=== PATIENT | male | born 1980 | race African-American/Black ===

== ENCOUNTER 2018-03-15 16:51 | Emergency (ER) | payer MEDICAID ==
[~2018-03-15] VITALS: Ht 180.3 cm; Wt 69.0 kg
[2018-03-15] MEDS ORDERED: IBUPROFEN 600MG TABLET PO NR (22:00)
[2018-03-15 22:07] LABS: CLARITY URINE CLEAR (CLEAR); COLOR URINE YELLOW (YELLOW); KETONES URINE TRACE (NEGATIVE); LEUKOCYTE ESTERASE URINE NEGATIVE (NEGATIVE); NITRITE URINE NEGATIVE (NEGATIVE); OCCULT BLOOD URINE 3+ (NEGATIVE); PROTEIN URINE 2+ (NEGATIVE); SPECIFIC GRAVITY URINE 1.024 (1.005-1.030); UROBILINOGEN URINE 0.2 E.U./dL (0.2-1.0)
[2018-03-16] MEDS ORDERED: HYDROCODONE/ACETAMINOPHEN 5/325MG TABLET PO ONE (02:15)
[2018-03-16 03:01] VITALS: BP 144/91
== END 2018-03-16 03:02 | disposition home or self-care (01) ==
LOC: ER 16:51
DX: M54.9 Dorsalgia, unspecified (principal); M54.32 Sciatica, left side; E11.9 Type 2 diabetes mellitus without complications; F17.200 Nicotine dependence, unspecified, uncomplicated
CPT/HCPCS: 74176; 76770; 82542; 99285